=== PATIENT | female | born 1965 | race Asian ===

== ENCOUNTER 2020-07-15 16:47 | Emergency (ER) | payer OTHER, SELFPAY ==
[2020-07-15 16:56] VITALS: BP 142/77; PULSE 70; RESP 15; TEMP 36.1; O2SAT 100
--- NOTE | 2020-07-15 17:02 | ED.DENTAL ---
HPI - Dental/Oral General Chief complaint: Dental/Oral Stated complaint: dental pain Time Seen by Provider: 07/15/20 16:50 Source: patient Mode of arrival: ambulatory Limitations: no limitations History of Present Illness HPI Narrative: This patient is a 55 year old [place] female who presents for evaluation of r right lower dental abscess. She reports pain for 3 days for which she has been taking tylenol. She has pain with eating. She denies fever, chills , nausea vomiting, difficulty swallowing. She states she called a dentist and she was referred to ER for antibiotics, and she will see dentist next week. Related Data Allergies Allergy/AdvReac Type Severity Reaction Status Date / Time No Known Allergies Allergy Verified 07/15/20 17:07 Review of Systems Review of Systems: All systems reviewed & are unremarkable except as noted in HPI and below Constitutional: Constitutional: Denies chills and Denies fever(s) ENT: Denies dizziness Respiratory: Respiratory: Denies dyspnea Gastrointestinal: Gastrointestinal: Denies nausea and Denies vomiting PMFSH Past Medical History Medical History (Updated 07/16/20 @ 00:00 by Winnie Harvey) Patient denies medical problems Surgical History Surgical History (Updated 07/15/20 @ 17:05 by Kiana Puga MD) H/O mastectomy Family History Family History (Updated 02/11/19 @ 12:48 by DOCTOR UNKNOWN) Mother Diabetes mellitus Social History Social History Smoking status: Never smoker Alcohol intake: never Gender identity (if verbalized by the patient): Female Exam Const: General: no acute distress and alert Orientation/consciousness: patient oriented x3 HENMT: Head: normocephalic and atraumatic Face and sinus: sinuses nontender and face symmetric Mouth: Yes lip normal, Yes tongue normal, Yes moist mucous membranes, No trismus and No restricted motion Teeth and gingiva: gingiva normal and poor dentition Throat: posterior oropharynx normal, tonsils normal and uvula midline Eyes: Pupils: Equal, round and reactive pupils present EOM: EOMs intact bilaterally Resp: Effort & Inspection: normal respiratory effort and no retractions Auscultation: clear to auscultation bilaterally Cardio: Rate: regular rate Rhythm: regular rhythm Heart sounds: no murmurs GI: GI Palp: Yes Tenderness to palpation present (GI) Skin: General skin exam: normal color Rashes: no rashes Neuro: General: patient oriented x3 and moves all extremities Psych: Mental Status: mental status grossly normal Affect: normal affect Course Reevaluation(s) Reevaluation #1: Pamela states she came from work to get antibiotics and she is ready to go back to work. Date: 07/15/20 Time: 17:06 Vital Signs Vital signs: Vital Signs Temperature 97 F L 07/15/20 16:56 Pulse Rate 70 07/15/20 16:56 Respiratory Rate 15 07/15/20 16:56 Blood Pressure 142/77 H 07/15/20 16:56 Pulse Oximetry 100 07/15/20 16:56 Temperature 97.6 F 07/15/20 17:23 Pulse Rate 99 07/15/20 17:23 Respiratory Rate 16 07/15/20 17:23 Blood Pressure 135/75 07/15/20 17:23 Pulse Oximetry 99 07/15/20 17:23 Discharge Plan Discharge Clinical Impression: Dental caries, Dental abscess Patient Disposition: Home, Self-Care Condition: Stable Instructions: Antibiotic Form, Dental Abscess (ED) Additional Instructions: Follow up with your dentist next week. Prescriptions: New amoxicillin-pot clavulanate [Augmentin] 875-125 mg tablet 1 tablet PO Q12H Qty: 20 RF: 0 Follow-up/Referrals: Diana Finnegan MD [Primary Care Provider] -
[2020-07-15] MEDS: AMOXICILLIN/CLAVULANATE K 875-125 MG TAB 1 TABLET PO (17:14)
[2020-07-15 17:23] VITALS: BP 135/75; PULSE 99; RESP 16; TEMP 36.4; O2SAT 99
== END 2020-07-15 17:26 | disposition home or self-care (01) ==
LOC: ANHED 17:09
PROVIDERS: Emergency Provider General Practice; PCP Family Medicine
DX: K04.7 Periapical abscess without sinus (principal); K02.9 Dental caries, unspecified; Z90.10 Acquired absence of unspecified breast and nipple
CPT/HCPCS: 99283; A9270